=== PATIENT | male | born 1980 | race Caucasian/White ===

== ENCOUNTER 2019-08-22 17:21 | Emergency (ER) | payer OTHER ==
[~2019-08-22] VITALS: Ht 175.3 cm; Wt 71.8 kg
[~2019-08-22 17:21] MED LIST: INSU100V3 SQ
[2019-08-22 17:42] VITALS: BP 128/79
[2019-08-22] MEDS ORDERED: LIDOCAINE 1%, 10ML INFIL ONE (18:00)
[2019-08-22] MEDS ORDERED: LIDOCAINE-MPF 1%, 5ML ONE (18:06)
--- NOTE | 2019-08-22 18:09 | NUR ---
pa in room for sutures. as
[2019-08-22] MEDS ORDERED: NEOSPORIN OINT. PKT 1 PACKET ONE (19:03)
== END 2019-08-22 19:18 | disposition home or self-care (01) ==
LOC: ED 19:17
DX: S61.112A Laceration without foreign body of left thumb with damage to nail, initial encounter (principal); E11.9 Type 2 diabetes mellitus without complications; F17.200 Nicotine dependence, unspecified, uncomplicated; W31.2XXA Contact with powered woodworking and forming machines, initial encounter; Y93.89 Activity, other specified; Y92.89 Other specified places as the place of occurrence of the external cause; Y99.8 Other external cause status
CPT/HCPCS: 12042; 13132; 99284; 99285